=== PATIENT | female | born 1995 | race Caucasian/White ===

== ENCOUNTER 2022-05-11 14:41 | Outpatient (CLI) | payer OTHER, SELFPAY ==
--- NOTE | ~2022-05-11 | XR_ITS ---
EXAM: XR abdomen/kub 1V DATE: 05/11/2022 15:00 HISTORY: KRISHNA KIDNEY STONES FU . COMPARISON: None available. FINDINGS: Possible calcified left lower lung granuloma. Normal bowel gas pattern. No organomegaly. M ultiple punctate 1-2 mm calcifications project over the renal shadows. Regional bones and soft tissue s normal for age. IMPRESSION: Bilateral nephrolithiasis. Reviewed, dictated and finalized at location K. HARDENER IMPRESSION: Bilateral nephrolithiasis.
== END 2022-05-11 14:42 | disposition home or self-care (01) ==
LOC: ANHIMG 14:49
PROVIDERS: PCP Family Medicine; Visit Provider Nurse Practitioner Family
DX: N20.0 Calculus of kidney (principal)
CPT/HCPCS: 74018

== ENCOUNTER 2023-05-17 13:31 | Outpatient (CLI) | payer OTHER, SELFPAY ==
--- NOTE | ~2023-05-17 | XR_ITS ---
EXAMINATION: XR abdomen/kub 1V INDICATION: Bilateral kidney stones TECHNIQUE: Supine views of the abdomen were obtained on 2 radiographs. COMPARISON: 05/11/2022 FINDINGS: Punctate stones of the kidneys appear unchanged since the comparison examination. No stones are identified along the expected courses of ureters or urinary bladder. There is a punctate phlebol ith of the right pelvis. The bowel gas pattern is normal. IMPRESSION: 1. Punctate bilateral nephrolithiasis without significant change. Reviewed, dictated and finalized at location L. ICAL EVALUATOR
== END 2023-05-17 13:32 | disposition home or self-care (01) ==
PROVIDERS: PCP Family Medicine; Visit Provider Nurse Practitioner Family
DX: N20.0 Calculus of kidney (principal)
CPT/HCPCS: 74018

== ENCOUNTER 2023-12-06 10:25 | Outpatient (CLI) | payer OTHER, SELFPAY ==
--- NOTE | ~2023-12-06 | XR_ITS ---
XR abdomen/kub 1V 12/06/2023 10:52 Indication: Renal stones Procedure: KUB Comparison: Comparison to multiple prior studies sequentially, with oldest reviewed study dated 04/29. Findings: Stable punctate bilateral renal stones allowing for differences of technique. Left kidney p artially obscured by bowel content. Nonobstructive bowel gas pattern. No acute osseous abnormality. Impression: 1: No significant change to punctate bilateral nephrolithiasis allowing for differences of technique. Reviewed, dictated and finalized at location B. Impression: 1: No significant change to punctate bilateral nephrolithiasis allowing for dif ferences of technique.
== END 2023-12-06 10:26 | disposition home or self-care (01) ==
PROVIDERS: PCP Family Medicine; Visit Provider Nurse Practitioner Family
DX: N20.0 Calculus of kidney (principal)
CPT/HCPCS: 74018

== ENCOUNTER 2024-01-18 16:22 | Outpatient (CLI) | payer OTHER, SELFPAY | END 2024-01-18 16:23 | disposition home or self-care (01) | LOC: ANHLAB 16:26 | PROVIDERS: PCP Family Medicine; Visit Provider Urology | DX: N20.0 Calculus of kidney (principal) | CPT/HCPCS: 87086 ==

== ENCOUNTER 2024-01-20 00:35 | Day surgery (SDC) | payer OTHER, SELFPAY ==
--- NOTE | 2024-01-16 17:22 | PC.NURSE ---
Report to the Outpatient Waiting Room, entrance under the green pavilion located off [facility], at time ____1:00PM___ on date ___[id number]____. Planned Procedure Time: ____3:00PM____. Time changes happen often and if your time is changed the preop area will call you the afternoon before. - You and your visitor will be asked to self-screen and do not enter if you have any COVID symptoms. - A mask is optional within the hospital at this time. Patients may have clear liquids (water, carbonated beverages, clear teas, apple juice) until 3 hours prior to surgery with a maximum of 20 ounces. STOP YOUR CLEAR LIQUIDS BY NOON. *- No food from midnight until time of surgery Take the following medications with a SIP of water the morning of surgery: N/A DO NOT STOP ANY OF YOUR OTHER PRESCRIPTION MEDICATIONS PRIOR TO SURGERY ?EXCEPT THE FOLLOWING: YOU MAY TAKE YOUR SCOPALOMINE PATCH, BUT ONLY IF YOU NEED IT FOR NAUSEA OR MOTION SICKNESS. Medications to discontinue per physician N/A Please no make-up, nail tamazight, hairspray, perfume, deodorant, or body powder the day of surgery. No jewelry (including any body piercings) or valuables the day of surgery, leave them at home. Please take a shower or bath the night before, or the morning of, surgery with an antibacterial soap. Wear comfortable, loose fitting clothing. - Jewelry must be removed prior to entering the operating room. Rings and piercings that are not removed may be cut off. - The hospital will not accept responsibility for valuables. - Please leave all valuables, including medications, at home the day of surgery. If you are going home after surgery, a licensed public transit bus driver must drive you home. - NO public transportation without another adult if you receive anesthesia. - We recommend that an adult stay with you for 24 hours following discharge. - We also recommend that you do not drive, make important decision, drink alcoholic beverages, or take any drugs that were not prescribed by your health care provider for at least 24 hours after your discharge time. Follow any additional instructions given to you from your surgeon. If you or anyone in your household have experienced Covid symptoms in the past week, please notify your surgeon or the nurse liaison at the phone number below for possible testing. Telephone instructions given to ___PATIENT (SERGIO) and asked if any additional questions and then verbalized understanding. Patient advised to call surgeon office or pre surgery nurse liaison [phone] if any additional questions.
[2024-01-16 17:29] VITALS: BMI 28.0
[2024-01-20] VITALS (9 sets, daily range): BP systolic 91–133; BP diastolic 54–80; PULSE 58–94; RESP 16–65; TEMP 36.4–36.6; O2SAT 100
--- NOTE | ~2024-01-20 | XR_ITS ---
EXAMINATION: XR abdomen/kub 1V DATE: 01/20/2024 11:57 INDICATION: Kidney stone. TECHNIQUE: A supine view of the abdomen on 2 radiographs was obtained. COMPARISON: Abdomen radiographs 12/06/23 FINDINGS: There are no dilated loops of bowel. There are multiple stones in each kidney measuring up to 4 mm on the left. IMPRESSION: 1. Bilateral kidney stones. Reviewed, dictated and finalized at location A. IMPRESSION: 1. Bilateral kidney stones.
--- NOTE | 2024-01-20 05:51 | WPDHPUPDATE1 ---
History and Physical Update Update Date/Time: 01/20/24 05:51 History and Physical has been reviewed, including an updated exam of the patient. There are NO changes in the patient's condition. Risks, benefits, and alternatives have been discussed and questions answered. Patient agrees to proceed with procedure.
--- NOTE | 2024-01-20 11:54 | WPDANESEPPF ---
Anes - Initial Pre Proc Eval Procedure: Operation Date: 01/20/24 13:30 Proposed Procedures p Right Extracorporeal Shock Wave Lithotripsy, - Sanjay Jalloh MD s Cystoscopy, Possible Right Stent Placement - Sanjay Jalloh MD Date/Time: 01/20/24 11:54 Surgeon: Sanjay Jalloh MD Pre Op Diagnosis: right renal stones Patient Data Age: 28 Gender: F Height: 1.78 m Weight: 88.5 kg Allergies Allergy/AdvReac Type Severity Reaction Status Date / Time amoxicillin Allergy Hives Verified 01/20/24 12:19 Penicillins Allergy Hives Verified 01/20/24 12:19 red dye AdvReac Nausea and Verified 01/20/24 12:19 Vomiting Home Medications Medication Instructions Recorded Confirmed Type scopolamine base 1 mg over 3 days 1 patch transdermal Q72H PRN Nausea 01/16/24 01/16/24 History transdermal patch Patient hx anesthesia problems: none Family hx anesthesia problems: none Results Review: All pre-operative results and documents have been reviewed as part of the pre-operative evaluation. [facility] Past Medical History Medical History (Updated 01/20/24 @ 12:00 by Blaine Payan DO) Renal stones Social History Social History Smoking status: Never smoker Second hand tobacco smoke exposure: Yes Alcohol intake: current Alcohol use details: 1-2 drinks per month Substance use: never Substance use type: does not use Living arrangements: alone Spiritual care concerns: No Anes - Eval Final PreProcedure Day of Procedure 01/20/24 11:54 Patient weight: overweight Heart: regular rate and rhythm Lungs: clear to auscultation Airway: Mallampati scale class II Neurological: alert and oriented Last oral intake: >/= 8 hours ASA classification: II Emergent: no Anesthetic plan: proceed Anesthesia type and monitoring: general LMA and standard monitoring Results Review: All pre-operative results and documents have been reviewed as part of the pre-operative evaluation. Informed Consent: The patient's anesthetic plan and its attendant risks and benefits were discussed with the patient/family/POA. Questions were solicited and answers provided to the satisfaction of the patient/family/POA.
[2024-01-20] MEDS: LACTATED RINGERS 1,000 ML 30 ML IV CONT (12:29)
[2024-01-20] MEDS: SCOPOLAMINE 1 MG PATCH 1 PATCH TRANSDERM (12:29)
[2024-01-20 12:34] LABS: INR 0.9; Prothrombin Time 12.6 Seconds (11.1-14.7)
[2024-01-20 12:35] LABS: Partial Thromboplastin Time 27.6 Seconds (22.3-36.8)
[2024-01-20] MEDS: ceFAZolin 2 GM/D5W 50 ML 2 GM/50 ML BAG IVPB (13:37)
--- NOTE | 2024-01-20 13:57 | W.PM.PROC2 ---
Procedure Note - Detailed Date of Procedure 01/20/24 Pre-op Diagnosis Right renal stones Post-op Diagnosis Same Procedure Performed Right ESWL Surgeon Sanjay Jalloh MD Anesthesia General Description of Procedure The patient was brought to the operative suite where he was placed in the supine position on the Dornier lithotripsy table. The focal point of the lithotripter was placed at two stones in right kidney, each measuing 4-5mm. A total of 2500 shocks were delivered at a power setting of 4 - splitting the shocks equally between the 2 stones. There appeared to be good fragmentation of the stone. The patient tolerated the procedure well and was taken to the recovery room in good condition. Estimated Blood Loss 0 Drains No Packing No Pathology None sent Condition Stable Disposition PACU
== END 2024-01-20 16:17 | disposition home or self-care (01) ==
PROVIDERS: PCP Family Medicine; Visit Provider Urology
PROC: (CPT 50590; principal; 2024-01-20 13:30)
DX: N20.0 Calculus of kidney (principal)
CPT/HCPCS: 50590; 36415; 74018; 85610; 85730; A9270; J0690; J1885; J2250; J2405; J2704; J3010; J7120

== ENCOUNTER 2024-02-01 09:48 | Outpatient (CLI) | payer OTHER, SELFPAY ==
--- NOTE | ~2024-02-01 | XR_ITS ---
EXAMINATION: XR abdomen/kub 1V DATE: 02/01/2024 10:14 INDICATION: Bilateral kidney stones. TECHNIQUE: A supine view of the abdomen on 2 radiographs was obtained. COMPARISON: Abdomen radiographs 01/20/2024 FINDINGS: There are approximately 2 stones in right kidney measuring up to 3 mm. There are at least 6 stones in left kidney measuring up to 3 mm. There are no dilated loops of bowel. IMPRESSION: 1. Bilateral kidney stones. Reviewed, dictated and finalized at location A. IMPRESSION: 1. Bilateral kidney stones.
== END 2024-02-01 09:49 | disposition home or self-care (01) ==
PROVIDERS: PCP Family Medicine; Visit Provider Urology
DX: N20.0 Calculus of kidney (principal)
CPT/HCPCS: 74018